=== PATIENT | female | born 1965 ===

== ENCOUNTER 2022-06-30 15:58 | Outpatient (RCR) | payer OTHER | END 2022-07-05 | LOC: OT 15:58 | PROVIDERS: ATTEND Specialist | DX: M25.542 Pain in joints of left hand (principal); M25.642 Stiffness of left hand, not elsewhere classified; R53.1 Weakness ==

== ENCOUNTER 2022-07-27 15:53 | Outpatient (RCR) | payer OTHER | END 2022-08-04 | LOC: OT 15:53 | PROVIDERS: ATTEND Specialist | DX: S63.277A Dislocation of unspecified interphalangeal joint of left little finger, initial encounter (principal) ==